=== PATIENT | female | born 1985 | race Caucasian/White ===

== ENCOUNTER 2017-06-06 19:42 | Inpatient (IN) ==
[2017-06-06] MEDS ORDERED: Ringers Solution, Lactated 1,000 ML IVC SCH ×2 (21:30→23:00)
[2017-06-06 22:04] LABS: Bilirubin,Urine Small (Negative); Blood,Urine Negative (Negative); Clarity,Urine Cloudy (Clear); Color,Urine Dark Yellow (Yellow); Glucose,Urine (UA) Normal (Normal); Ketones,Urine 40 mg/dL (Negative); Leukocyte Esterase,Urine Small (Negative); Nitrite,Urine Negative (Negative); Protein,Urine 30 mg/dL (Neg-Trace); Specific Gravity,Urine 1.027 (1.010-1.025); Urobilinogen,Urine Normal (Normal)
[2017-06-06 22:07] LABS: Hyaline Casts,Urine None Seen per lpf (None-Few); RBC,Urine 0-3 per hpf (0-3); Squamous Epithelial Cell,Urine Many per lpf (None-Few)
[2017-06-06 22:16] LABS: Bacteria,Urine Moderate per hpf (None-Few); Mucus,Urine Moderate (Few)
[2017-06-06] MEDS ORDERED: Famotidine 20 MG/2 ML VIAL IVP PRN (22:54)
[2017-06-06] MEDS ORDERED: Naloxone 0.4 MG/ML INJ IVP PRN (22:54)
[2017-06-06] MEDS ORDERED: Ondansetron 4 MG/2 ML VIAL IVP PRN (22:54)
[2017-06-06] MEDS ORDERED: NIFEdipine 10 MG CAPSULE PO ONE (22:56)
[2017-06-06] MEDS ORDERED: *HR* Nalbuphine 20 MG/ML AMPUL IVP PRN (22:56)
[2017-06-06] MEDS ORDERED: ceFAZolin 2,000 MG in D5% in Water 100 ML IVPB ONE (23:11)
[2017-06-06] MEDS ORDERED: Betamethasone Acet/SodPhos 6 MG/ML MDV IM SCH (23:15)
[2017-06-06] MEDS ORDERED: Famotidine 20 MG TABLET PO ONE (23:15)
[2017-06-06 23:26] LABS: Basophils # 0.1 K/mcL (0.0-0.2); Basophils % 0.4 %; Eosinophils # 0.2 K/mcL (0.0-0.6); Eosinophils % 1.7 %; Hematocrit 34.5 % (35.3-44.9); Hemoglobin 11.6 g/dL (11.5-15.4); Immature Granulocytes % 0.9 % (0-4); Lymphocytes % 16.4 %; Mean Corpuscular HGB Conc 33.6 g/dL (31.6-35.5); Mean Corpuscular Hemoglobin 30.6 pg (28.0-33.3); Mean Platelet Volume 11.1 fL (9.4-12.4); Monocytes # 0.8 K/mcL (0.0-1.3); Monocytes % 6.2 %; Platelet Count 268 K/mcL (140-400); Red Blood Count 3.79 M/mcL (3.82-4.97); Red Cell Distribution Width 13.1 % (11.5-14.5); Segmented Neutrophils % 74.4 %
--- NOTE | 2017-06-06 23:26 | OB/GYN History & Physical ---
Date of Encounter: 06/07/17 Time of Encounter: 19:40 Assessment and Plan (1) 34 weeks gestation of Current visit: Yes Status: Acute Pt receives appropriate care with Dr. Ryder Pt presenting with cervical dilation and contractions noted on monitor Plan for 12 mg betamethasone for lung maturity (2) labor in third trimester Current visit: Yes Status: Acute Pt has made cervical change during hospitalization, admit to labor and delivery Cervical dilation now 3 cm at 2245, per RN Nifedipine 30 mg immediate release x1 Betamethasone injection Nubain given for pain Ancef for unknown GBS status Plan of care discussed with Dr. Ryder Qualifiers: labor delivery status: without delivery Qualified Code(s): O60.03 - labor without delivery, third trimester (3) Non-stress test reactive on surveillance Current visit: Yes Status: Acute Baseline 135 bpm Moderate variability Variable decelerations noted recently Pt received 1 L bolus @ 2200 Will continue to monitor closely (4) GBS screening not performed Current visit: Yes Status: Acute Plan for GBS prophylaxis, with consideration pt states allergy to penicillin Cefazolin per protocol (5) GERD (gastroesophageal reflux disease) Current visit: Yes Status: Acute Pt complaining of heartburn-related symptoms upon admission Famotidine, per Huy MARIN Pt reports symptoms now improved Qualifiers: Esophagitis presence: esophagitis presence not specified Qualified Code(s) : K21.9 - Gastro-esophageal reflux disease without esophagitis History of Present Illness Chief complaint: Labor Evaluation HPI: Ms. Doss is a 31 year old female at 34 weeks and 4 days presenting for labor evaluation. Pt endorses active movement. Has noted light pink spotting on pad , but denies active vaginal bleeding or leakage of fluids. States she felt contractions today, with pain localized at umbilicus. Reports mild SOB, stable over this . Denies SONI and chest pain. Pt had an elevated 1 hr Glucose test, but a normal 3 hr glucose tolerance test. She is expecting a girl. She receives appropriate care with Dr. Ryder and was last seen nine days prior to this admission as an outpatient. Cervical assessment then was 1/ thick/-3/ vertex presentation. labs: O POSITIVE/ Rubella Immune/ Varicella IgG Ab Positive/GBS unkown / All other serologies negative Past Med Surg Social Fam HX - Past Medical History Medical history: no medical history Psychiatric history: anxiety, depression - Past Surgical History Surgical History: no surgical history - Social History Smoking Status: Former smoker Smokeless Tobacco Status: No Alcohol use: none Drug use: marijuana - Family History Mother Age: 56 Living Status: Still Living Hx Family Cardiac Disorders: Yes (Stroke, heart palpitations) Hx Family Respiratory Disorders: No Hx Family Cancer: No Hx Family GI Disorders: No Hx Family Genitourinary Disorders: No Hx Family Endocrine Disorder: No Hx Family Musculoskeletal Disorders: No Hx Family Neuromuscular Disorders: No Hx Family Neurologic Disorders: No Hx Family HEENT Disorders: No Hx Family Autoimmune Disorders: No Hx Family Reproductive Disorders: No Hx Family Psychosocial Disorders: No Hx Family Medical Disorders: No Obstetrical History - Pregnancies : 6 Para: 4 Term: 4 : 0 Ab's: 1 Livin - History/Complications History/Complications: # 1: -2005, 39 weeks gestation, male, 9lb 3oz, vaginal delivery. # 2: , 39 weeks gestaiton, male, 6lb 3oz, vaginal delivery - elevated B/P. # 3 -2009, 39 weeks gestation, male, 7lb 2oz, vaginal delivery - elevated B/P, Bleeding. # 4: , spontaneous . # 5: 2014,Female,7lbs 6oz,Vaginal,Full term-[place]. Medications and Allergies Omeprazole [PriLOSEC] 40 mg PO DAILY 06/06/17 [History] Allergies Penicillins Allergy (Verified 06/06/17 20:13) Hives Exam - Constitutional Constitutional: well developed, well nourished - HEENT HEENT: EOMI, Normocephaly - Lungs Respiratory exam: accessory muscle use (No chest wall tenderness. No wheezes. ) , CTAB, tachypnea - Cardiovascular Cardiovascular exam: RRR - Abdomen Abdomen: Present: gravid (No tenderness on mild palpation. ). Absent: bruit present, guarding noted - Extremities Extremities exam: radial pulses palpable and symetrical (No pedal edema. No calf tenderness ) - Cervix Dilation: 2 (performed by Dr. Ryder @ 1940) - Comments Comments: NST-see scanned FHR tracing. Baseline 135, reactive Results Result Diagrams: 06/06/17 21:45 Abnormal lab results Urine Clarity Cloudy (Clear) A 06/06/17 21:50 Ur Specific [place] 1.027 (1.010-1.025) H 06/06/17 21:50 Urine Protein 30 mg/dL (Neg-Trace) H 06/06/17 21:50 Urine Ketones 40 mg/dL (Negative) H 06/06/17 21:50 Urine Bilirubin Small (Negative) H 06/06/17 21:50 Ur Leukocyte Esterase Small (Negative) H 06/06/17 21:50 Urine Microscopic WBC 5-15 per hpf (0-3) H 06/06/17 21:50 Ur Squamous Epith Cells Many per lpf (None-Few) H 06/06/17 21:50 Urine Bacteria Moderate per hpf (None-Few) H 06/06/17 21:50 Urine Mucus Moderate (Few) H 06/06/17 21:50 Ur Culture Indicated? YES (NO) A 06/06/17 21:50 All other labs normal. US - abdomen: report reviewed ( Anatomy Scan: 02/27/17. Physician: Dr Ryder. Ship Surveyor: Rey. JERRY: 07/14/17. UTS: 20 w 6 d . Type of Scan: transabdominal. Indications: Anatomy evaluation. Findings: Single live VTX fetus anterior Placenta Mat Adnexas appear WNL adequate fluid EFW 14 OZ No gross anomalies seen at this time +FHR Pt declined cx length screen---ACJ RDMS. ) - VTE Reasons for not Prescribing Prophylaxis: Treatment not Indicated - Low risk for VTE
--- NOTE | 2017-06-07 03:12 | OB Labor Progress Note ---
Date of Encounter: 06/07/17 Time of Encounter: 03:10 Labor Progress Note - Subjective Subjective: Pt sleeping at this time states has not been feeling contractions. Has not needed any pain medication. - Heart Tones Heart Tones: 135/moderate/+accels/ occasional variables during night. - [place]: no contractions at this time. - Plan Plan: Will reevaluate at 0700. If no cervical change will discharge home.
[2017-06-07] MEDS ORDERED: ceFAZolin 1,000 MG in D5% in Water (Mini-Bag+) 100 ML IVPB SCH (08:00)
== END 2017-06-07 07:22 | disposition home or self-care (01) | DRG 563 ==
LOC: 1NENULAB 19:42
PROVIDERS: ADMIT Obstetrics & Gynecology; ATTEND Obstetrics & Gynecology

== ENCOUNTER → 2017-06-08 08:13 | Observation (INO) ==
--- NOTE | 2017-06-07 20:45 | OB/GYN Progress Note ---
Date of Encounter: 06/07/17 Time of Encounter: 20:46 - Assessment and Plan (1) 34 weeks gestation of Current Visit: No Status: Acute (2) labor in third trimester Current Visit: No Status: Acute Ms. Doss is a 31 yo F at 34+5 who presents to L&D for her second steroid injection for lung maturity, but also c/o intermittent contractions. Patient was seen yesterday for a labor rule out. She had contractions and was 3cm dilated. Patient was given Nifedipine 30 mg immediate release x1 to stop contractions, Betamethasone injection for lung maturity , Nubain for pain and Ancef for unknown GBS status. Patient reports that he contractions never fully stopped after leaving yesterday. She reports they are more spaced out however. Here in L&D she is not having contractions on the monitor Qualifiers: labor delivery status: without delivery Qualified Code(s): O60.03 - labor without delivery, third trimester (3) Non-stress test reactive on surveillance Current Visit: No Status: Acute Ms. Doss is a 31 yo F at 34+5 who presents to L&D for her second steroid injection for lung maturity, but also c/o intermittent contractions. Patient was seen yesterday for a labor rule out. She had contractions and was 3cm dilated. Patient was given Nifedipine 30 mg immediate release x1 to stop contractions, Betamethasone injection for lung maturity , Nubain for pain and Ancef for unknown GBS status. Patient reports that he contractions never fully stopped after leaving yesterday. She reports they are more spaced out however. She was given her second betmethasone injection for lung maturity and she and her baby were monitored in L&D. Subjective - Subjective Principal diagnosis: Labor Evaluation Interval history: Ms. Doss is a 31 yo F at 34+5 who presents to L&D for her second steroid injection, but also c/o intermittent contractions. Patient was seen yesterday for a labor rule out. Patient was given Nifedipine 30 mg immediate release x1 to stop contractions, Betamethasone injection for lung maturity , Nubain for pain and Ancef for unknown GBS status. Patient reports that he contractions never fully stopped after leaving yesterday. She reports they are more spaced out however. She was 3cm dilated yesterday. Patient reports some minor spotting post being checked, but denies overt vaginal bleeding and loss of fluid. Patient reports good movement. Patient report loss of mucus plug around 11am today. She denies, chest pain, SOB, blurry vision, vomiting diarrhea, dysuria. Labs: Blood type:O+, Rubella immune, GBS not yet tested, all other serologies normal. Antepartum ROS: movement normal, contractions, no loss of fluid, no vaginal bleeding Objective - Exam Auscultation: bilateral: normal Abdomen: Present: soft, gravid. Absent: tenderness Cervical dilation: 3cm/50/-2
[2017-06-07] MEDS: Ringers Solution, Lactated 1,000 ML IVC SCH (22:44)
--- NOTE | 2017-06-08 00:15 | OB/GYN History & Physical ---
Date of Encounter: 06/08/17 Time of Encounter: 20:40 Assessment and Plan (1) 34 weeks gestation of Current visit: No Status: Acute (2) labor in third trimester Current visit: No Status: Acute Ms. Doss is a 31 yo F at 34+5 who presents to L&D for her second steroid injection for lung maturity, but also c/o intermittent contractions. Patient was seen yesterday for a labor rule out. She had contractions and was 3cm dilated. Patient was given Nifedipine 30 mg immediate release x1 to stop contractions, Betamethasone injection for lung maturity , Nubain for pain and Ancef for unknown GBS status. Patient reports that he contractions never fully stopped after leaving yesterday. She reports they are more spaced out however. She was given her second betmethasone injection for lung maturity and she and her baby were monitored in L&D. Due to increased contractions and some variables it was decided to observe the patient overnight and provide her with IV fluid hydration. Qualifiers: labor delivery status: without delivery Qualified Code(s): O60.03 - labor without delivery, third trimester (3) Non-stress test reactive on surveillance Current visit: No Status: Acute History of Present Illness Chief complaint: Contractions HPI: Ms. Doss is a 31 yo F at 34+5 who presents to L&D for her second steroid injection, but also c/o intermittent contractions. Patient was seen yesterday for a labor rule out. Patient was given Nifedipine 30 mg immediate release x1 to stop contractions, Betamethasone injection for lung maturity , Nubain for pain and Ancef for unknown GBS status. Patient reports that he contractions never fully stopped after leaving yesterday. She reports they are more spaced out however. She was 3cm dilated yesterday. Patient reports some minor spotting post being checked, but denies overt vaginal bleeding and loss of fluid. Patient reports good movement. Patient report loss of mucus plug around 11am today. She denies, chest pain, SOB, blurry vision, vomiting diarrhea, dysuria. Labs: Blood type:O+, Rubella immune, GBS not yet tested, all other serologies normal. Past Med Surg Social Fam HX - Past Medical History Medical history: no medical history Psychiatric history: anxiety, depression - Past Surgical History Surgical History: no surgical history - Social History Smoking Status: Former smoker Smokeless Tobacco Status: No Alcohol use: none Drug use: marijuana - Family History Mother Living Status: Still Living Hx Family Cardiac Disorders: Yes (Stroke, heart palpitations) Hx Family Respiratory Disorders: No Hx Family Cancer: No Hx Family GI Disorders: No Hx Family Endocrine Disorder: No Hx Family Neuromuscular Disorders: No Hx Family Neurologic Disorders: No Hx Family HEENT Disorders: No Hx Family Autoimmune Disorders: No Obstetrical History - Pregnancies : 6 Para: 4 Ab's: 1 Livin Medications and Allergies Omeprazole [PriLOSEC] 40 mg PO DAILY 06/06/17 [History] Allergies Penicillins Allergy (Verified 06/07/17 20:41) Hives Review of System OB All systems PM: reviewed and no additional remarkable complaints except as stated Exam - Constitutional Constitutional: well developed, well nourished, no acute distress - HEENT HEENT: PERRL, Mucus Membranes Moist - Neck Neck exam: normal inspection - Lungs Respiratory exam: CTAB - Cardiovascular Cardiovascular exam: RRR, +S1, +S2 - Abdomen Abdomen: Present: bowel sounds normal, gravid, non tender (soft) - Extremities Extremities exam: normal inspection Deep Tendon Reflex Grade: 2+ Normal - Cervix Dilation: 3 Effacement: 50 Station: -2 Results All other labs normal. - VTE Reasons for not Prescribing Prophylaxis: Treatment not Indicated - Low risk for VTE
[2017-06-08] MEDS: Ringers Solution, Lactated 1,000 ML IVC SCH (03:31)
--- NOTE | 2017-06-08 07:10 | OB/GYN Progress Note ---
Date of Encounter: 06/08/17 Time of Encounter: 07:06 - Assessment and Plan (1) Variable heart rate decelerations, antepartum Current Visit: Yes Status: Acute Occassional variable decelerations throughout night with intermittent low baseline. Will continue to monitor at this time. (2) 34 weeks gestation of Current Visit: No Status: Acute Subjective - Subjective Interval history: Pt comfortable this am. No complaints other than occassional contractions. Antepartum ROS: movement normal, no loss of fluid, no vaginal bleeding, no contractions Objective - Vital Signs Vital Signs: Intake and Output 06/07/17 06/07/17 06/08/17 15:59 23:59 07:59 Intake Total 1000 / 1000 Balance 1000 / 1000 Intake: IV Fluids 1000 / 1000 Lactated Ringers 1,000 ML 1000 / 1000 @ 125 mls/hr IVC .Q8H [facility] Rx#:[id number] Other: Weight 90.7 kg - Exam FHR comments: FHT with varied baseline. Moderate variability. +accels, intermittent variable declerations. Abdomen: Present: soft, gravid. Absent: tenderness Uterus: Absent: tenderness
[~2017-06-08 08:13] MED LIST: Betamethasone Acet/SodPhos 6 MG/ML MDV IM SCH; Famotidine 20 MG/2 ML VIAL IVP SCH; Prenatal Vit/FA 1 EACH TABLET PO SCH
--- NOTE | 2017-06-08 09:48 | Discharge Summary ---
Date of Encounter: 06/08/17 Time of Encounter: 07:55 - Discharge Diagnosis (1) NST (non-stress test) reactive Priority: Primary Status: Acute Comments: Reactive NST (2) 34 weeks gestation of Priority: Primary Status: Acute Comments: Discharge to office for BPP and doppler studies Follow up with routine scheduled care and as needed in labor and delivery Education provided on labor Patient had steroids on 06/06 and 06/07 for lung development. - Discharge Medications Home Medications: Omeprazole [PriLOSEC] 40 mg PO DAILY 06/06/17 [History] Allergies/Adverse Reactions: Allergies Penicillins Allergy (Verified 06/07/17 20:41) Hives Date of admission: 06/07/17 20:23 Primary care physician: Dallas Ling MD Discharging clinician: Francia Bradford Anticipated date of discharge: 06/08/17 - Patient Status Disposition: Home, Self-Care Condition: Good Functional capacity at discharge: independent ambulation Overall status at discharge: patient is back to baseline - Discharge Instructions Follow Up With: Dallas Ling MD [Primary Care Provider] - Janet Ryder DO [Partnered Physician] - - Diet and Activity Activity: increase activity as tolerated Diet: regular diet 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 No decels noted from beginning of shift until discharge. - Neurological Exam Neurological exam: alert, oriented X3 - VTE Reasons for not Prescribing Prophylaxis: Treatment not Indicated - Low risk for VTE
== END | disposition home or self-care (01) ==
LOC: 1NENULAB
PROVIDERS: ADMIT Registered Nurse; ATTEND Registered Nurse

== ENCOUNTER → 2017-06-25 17:47 | Observation (INO) ==
[2017-06-25 16:05] LABS: Basophils % 0.4 %; Eosinophils # 0.1 K/mcL (0.0-0.6); Eosinophils % 1.1 %; Hemoglobin 10.9 g/dL (11.5-15.4); Immature Granulocytes % 0.6 % (0-4); Lymphocytes # 1.4 K/mcL (0.6-4.6); Lymphocytes % 14.5 %; Mean Corpuscular HGB Conc 34.1 g/dL (31.6-35.5); Mean Corpuscular Hemoglobin 30.4 pg (28.0-33.3); Mean Corpuscular Volume 89.4 fL (83.0-100.0); Mean Platelet Volume 10.5 fL (9.4-12.4); Monocytes # 0.6 K/mcL (0.0-1.3); Monocytes % 5.9 %; Neutrophils # 7.7 K/mcL (1.6-8.9); Platelet Count 227 K/mcL (140-400); Red Blood Count 3.58 M/mcL (3.82-4.97); Red Cell Distribution Width 13.3 % (11.5-14.5); Segmented Neutrophils % 77.5 %
[2017-06-25 16:20] LABS: Alanine Aminotransferase 24 Units/L (0-55); Aspartate Amino Transferase 17 Units/L (5-34); BUN/Creatinine Ratio 9 (6-26); Blood Urea Nitrogen 6 mg/dL (7-20); Lactate Dehydrogenase 162 Units/L (159-327); Uric Acid 4.1 mg/dL (2.6-6.0); eGFR For African Americans > 60 (> 60); eGFR For Non-African Americans > 60 (> 60)
--- NOTE | 2017-06-25 16:31 | OB/GYN Progress Note ---
Date of Encounter: 06/25/17 Time of Encounter: 16:24 - Assessment and Plan (1) 37 weeks gestation of Current Visit: Yes Status: Acute (2) Elevated blood pressure affecting , antepartum Current Visit: Yes Status: Acute Pt remains without symptoms, PIH labs negative, tracing reactive, cervical exam unchanged from office. Discharged home with labor precautions, and when to return to triage. Pt and verbalize understanding. Discussed with Dr. Peters. (3) NST (non-stress test) reactive Current Visit: No Status: Acute Baseline 135 (4) Uterine contractions during Current Visit: Yes Status: Acute cervical exam unchanged from office. Subjective - Subjective Interval history: presents from office for contractions and increased BP. Reports good movement, and occasional contractions that are painful denies vaginal bleeding, leaking of fluid, headache, vision changes, or RUQ pain or discomfort. Antepartum ROS: movement normal, contractions, no loss of fluid, no vaginal bleeding Objective - Vital Signs Vital Signs: Intake and Output 06/25/17 06/25/17 06/25/17 07:59 15:59 23:59 Other: Weight 91.1 kg Patient Weight 06/25/17 23:59 Weight 91.1 kg - Exam FHR: auscultation normal FHR comments: Baseline 135 Auscultation: bilateral: normal Abdomen: Present: normal appearance, soft, gravid Uterus: Present: normal Comments: minimal lower extremity edema, +1 DTR, - clonus - Labs Labs: Abnormal lab results RBC 3.58 M/mcL (3.82-4.97) L 06/25/17 15:50 Hgb 10.9 g/dL (11.5-15.4) L 06/25/17 15:50 Hct 32.0 % (35.3-44.9) L 06/25/17 15:50 BUN 6 mg/dL (7-20) L 06/25/17 15:50
[2017-06-25 17:31] LABS: Protein/Creatinine Ratio,Urine 0.11 mg/mg (0-0.20)
== END | disposition home or self-care (01) ==
LOC: 1NENULAB
PROVIDERS: ADMIT Obstetrics & Gynecology; ATTEND Obstetrics & Gynecology